=== PATIENT | male | born 1970 | race Caucasian/White ===

== ENCOUNTER 2022-06-04 06:46 | Day surgery (SDC) | payer BC ==
[~2022-06-04] VITALS: Ht 180.3 cm; Wt 113.1 kg
[2022-06-04] MEDS ORDERED: ATOR40TA (07:09)
[2022-06-04] MEDS ORDERED: LISI20 (07:09)
[2022-06-04] MEDS ORDERED: LATA.005SO (07:09)
--- NOTE | 2022-06-04 07:28 | NUR ---
06/04/22 0728 MILES SCHRADER 2 ATTEMPTS AT IV. FIRST ATTEMPT BY MA IN R HAND INFILTRATED. SECOND ATTEMPT BY MA IN R FOREARM SUCESSFUL.
== END 2022-06-04 09:14 | disposition home or self-care (01) ==
LOC: ORSCSDS 06:46
PROVIDERS: Surgery
PROC: 0DBP8ZX Excision of Rectum, Via Natural or Artificial Opening Endoscopic, Diagnostic (ICD-10-PCS; principal; 2022-06-04 08:15)
DX: Z12.11 Encounter for screening for malignant neoplasm of colon (principal); K62.1 Rectal polyp; K57.30 Diverticulosis of large intestine without perforation or abscess without bleeding; I10 Essential (primary) hypertension; E78.5 Hyperlipidemia, unspecified; E66.9 Obesity, unspecified; Z68.32 Body mass index [BMI] 32.0-32.9, adult; Z79.899 Other long term (current) drug therapy
CPT/HCPCS: 88305; J2704; J7120

== ENCOUNTER → 2022-09-09 | Outpatient (CLI) | payer BC ==
[~2022-09-09] MED LIST: ATOR40TA; LATA.005SO; LISI20
== END | disposition home or self-care (01) ==
LOC: LAB 14:30 → LAB SHORT 14:30
DX: C44.1192 Basal cell carcinoma of skin of left lower eyelid, including canthus (principal)
CPT/HCPCS: 88305